=== PATIENT | female | born 1945 | race Caucasian/White ===

== ENCOUNTER 2016-09-02 12:07 | Emergency (ER) | payer MEDICARE ==
[2014-09-10 16:43] VITALS: BMI 34.0
[~2016-09-02 12:07] MED LIST: BAYER CHEWABLE81 MG PO; COUMADIN7.5 MG PO; JANUMET 50-1,001 TAB PO; MAVIK4 MG PO; VITAMIN B-1000 MCG/M IM; VITAMIN B-121000 MCG PO; ZOLOFT50 MG PO
[2016-09-02 14:00] LABS: BASOPHILS 0.2 % (0.0-2.0); EOSINOPHILS 0.3 % (0-7); HEMOGLOBIN 12.3 g/dL (12-16); IMMATURE GRANULOCYTES 0.3 % (0-5); LYMPHOCYTES 15.1 % (15-50); MCH 27.9 pg (26.0-34.0); MCHC 32.4 g/dL (31.0-37.0); MCV 86.2 fL (80.0-100.0); MONOCYTES 6.7 % (2-11); NEUTROPHILS 77.4 % (40-80); PLATELET COUNT 101 10x3/uL (130-400); RBC 4.41 10x6/uL (4.00-5.40); RDW 15.1 % (11.5-14.5); WBC 8.9 10x3/uL (4.8-10.8)
[2016-09-02 14:11] LABS: ALBUMIN 3.5 g/dL (3.4-5.0); ANION GAP 13.4 mmol/L (8-16); APTT 21.4 SECONDS (22.8-39.4); BILIRUBIN - TOTAL 0.38 mg/dL (0.2-1.3); CARBON DIOXIDE 27.4 mmol/L (21.0-32.0); INR 2.48 (0.85-1.17); POTASSIUM - SERUM 4.8 mmol/L (3.5-5.1); PROTEIN - SERUM 7.3 g/dL (6.4-8.2)
== END 2016-09-02 16:47 | disposition home or self-care (01) ==
LOC: D.ER 12:07
PROVIDERS: Physician Assistant
DX: S09.90XA Unspecified injury of head, initial encounter (principal); W10.9XXA Fall (on) (from) unspecified stairs and steps, initial encounter; Y93.89 Activity, other specified; Y92.019 Unspecified place in single-family (private) house as the place of occurrence of the external cause; M25.512 Pain in left shoulder; M25.552 Pain in left hip; Z79.01 Long term (current) use of anticoagulants; E11.9 Type 2 diabetes mellitus without complications; I10 Essential (primary) hypertension; Z86.73 Personal history of transient ischemic attack (TIA), and cerebral infarction without residual deficits; F32.9 Major depressive disorder, single episode, unspecified; F17.200 Nicotine dependence, unspecified, uncomplicated

== ENCOUNTER 2016-11-14 05:14 | Day surgery (SDC) | payer MEDICARE ==
[2016-11-13 11:15] LABS: HEMATOCRIT 40.9 % (36.0-48.0); HEMOGLOBIN 12.8 g/dL (12-16); MCH 27.9 pg (26.0-34.0); MCHC 31.3 g/dL (31.0-37.0); MCV 89.1 fL (80.0-100.0); MEAN PLATELET VOLUME 9.2 fL (7.4-10.4); RBC 4.59 10x6/uL (4.00-5.40); RDW 15.3 % (11.5-14.5); WBC 6.9 10x3/uL (4.8-10.8)
[2016-11-13 11:24] LABS: APTT 28.3 SECONDS (22.8-39.4); INR 0.99 (0.85-1.17); PROTIME 12.9 SECONDS (11.6-15.0)
[2016-11-13 11:39] LABS: ANION GAP 15.1 mmol/L (8-16); CREATININE - SERUM 1.1 mg/dL (0.6-1.3); POTASSIUM - SERUM 4.1 mmol/L (3.5-5.1)
[~2016-11-14] VITALS: Ht 154.9 cm; Wt 81.6 kg
--- NOTE | ~2016-11-14 | OP ---
PATIENT NAME: JENNIFER LEUNG MEDICAL RECORD: [id number] :41 LOCATION:[facility] ADMISSION DATE: SURGEON: KING COOK DPM DATE OF OPERATION: 11/14/2016 PREOPERATIVE DIAGNOSES: Enlarged bone right fifth toe, right fourth toe and right fourth metatarsal. POSTOPERATIVE DIAGNOSES: Enlarged bone right fifth toe, right fourth toe and right fourth metatarsal. PROCEDURES: 1. Right fifth arthroplasty. 2. Partial resection base of the right fourth proximal phalanx. 3. Partial met head resection of right fourth metatarsal. ANESTHESIA: Local with IV sedation utilizing lidocaine and Marcaine plain, approximately 10 cc around the fourth and fifth ray of the right foot. HEMOSTASIS: Right ankle tourniquet at 250 mmHg. PREOPERATIVE DETAILS: The patient was taken to the OR, placed on the operating table in a supine position. This was followed by induction of general anesthesia and infiltration of local anesthetic. The right extremity was then prepped and draped in usual aseptic technique followed by exsanguination and inflation of tourniquet. PROCEDURE NUMBER #1: Arthroplasty, right fifth digit. A 15-blade was used to create a 1.5 cm linear incision over the dorsal aspect of the right fifth digit. Incision was deepened down to the extensor longus tendon, which was transected. The head of the proximal phalanx was then delivered and resected with a sagittal saw. All rough areas were smoothed with a rongeur. The wound was flushed. The extensor tendon was repaired with 4-0 Rapide. The subcutaneous tissue was repaired with 4-0 Rapide and the skin was closed with 4-0 Rapide in a subcuticular technique. PROCEDURE NUMBER #2: Partial resection of the base of the fourth proximal phalanx of the right foot. The incision was made just proximal to the PIPJ of the right fourth digit proximal, past the fourth MPJ. The incision deepened down through subcutaneous tissue to the extensor apparatus. A linear capsulotomy was made just lateral to the extensor longus tendon longitudinally, freeing the head of the fourth metatarsal and the base of the proximal phalanx of the fourth digit. Freeing the base of the proximal phalanx of the fourth digit, a sagittal saw was used to resect the lateral aspect. It was removed. Excellent reduction of the enlargement was noted. PROCEDURE NUMBER #3: Partial met head resection, right fourth digit. A sagittal saw was then used to resect the lateral aspect of the right fourth metatarsal head approximately 3 mm. Excellent reduction of the enlargement was noted. Wound was flushed. The capsule was then closed with 2-0 Vicryl in a horizontal mattress technique. The subcutaneous tissue was repaired with 4-0 Rapide and the skin was closed with 4-0 Rapide in a subcuticular technique followed by Dermabond, Adaptic, 4 x 4 and Conform were used to dress the wounds followed by Coban. Tourniquet was deflated. OPERATIVE REPORT [id number] JENNIFER LEUNG POSTOPERATIVE DETAILS: The patient tolerated the procedure well and left the OR with vital signs stable and vascular status at preoperative levels. The patient was transferred to recovery per anesthesia in stable condition. TRANSINT:[id number] Voice Confirmation ID: [id number] DOCUMENT ID: [id number] KING COOK DPM CC: [id number] DICTATION DATE: 11/14/16 1232 HIM MANAGER: 11/14/16 8723 [facility] 11/14/16 [id number] [place] [address]
[2016-11-14 10:47] VITALS: BP 108/62; BMI 34.0
[2016-11-14 10:49] VITALS: BP 108/68; Ht 154.9 cm; Wt 81.6 kg
== END 2016-11-14 14:25 | disposition home or self-care (01) ==
LOC: D.OPS 05:14 → D.PAN 12:30 → D.OPS 12:30
PROVIDERS: Anesthesiology
DX: M89.371 Hypertrophy of bone, right ankle and foot (principal)

== ENCOUNTER → 2018-03-05 18:09 | Outpatient (CLI) | payer MEDICARE ==
[2016-11-14 10:49] VITALS: BMI 34.0
== END | disposition home or self-care (01) ==
LOC: D.MAMMO 02-18 14:00
DX: Z12.31 Encounter for screening mammogram for malignant neoplasm of breast (principal)

== ENCOUNTER 2019-04-27 07:12 | Outpatient (CLI) | payer MEDICARE ==
[~2019-04-27] VITALS: Ht 154.9 cm; Wt 80.9 kg
--- NOTE | ~2019-04-27 | HEMODYNAMI ---
PATIENT:JENNIFER LEUNG MEDICAL RECORD: [id number] : 41 [id number] ADMISSION DATE: 04/27/19 Generatedon:04/28/201910:20 Patient name: JENNIFER LEUNG Patient #: [id number] : 1945 Date of study: 04/28/2019 Page: Of Hemodynamic Procedure Report Patient Data Patient Demographics Procedure consent was obtained First Name: JENNIFER Gender: Female Last Name: MADHU : 1945 Middle Initial: MARIZOL Age: 73 year(s) Patient #: [id number] Race: SSN: [id number] Additional ID: [id number] Contact details Address: [address] [place] [address] State: [place] City: [place] Zip code: [address] Past Medical History Allergies Allergen Reaction Date Comments Reported Other allergy 04/27/2019 Sulfa Admission Admission Data Admission Date: 04/27/2019 Admission Time: 7:12 Arrival Date: 04/27/2019 Arrival Time: 0:00 Admit Source: Other Insurance Payor: Private Room #: [id number] health insurance [facility] #: [id number] Height (in.): 154 BSA: 3.5 (m2) Height (cm.): 391.16 BMI: 5.23 (kg/m2) Weight (lbs.): 176.37 Weight (kg.): 80 Lab Results Lab Result Date: 04/28/2019 Lab Result Time: 0:00 Biochemistry Name Units Result Min Max BUN mg/dl 19 --(----)*- 7 18 Creatinine mg/dl 1 --(--*-)-- 0.6 1.3 eGFR ml/min 58 *-(----)-- 90 120 NONAFRICAN CBC Name Units Result Min Max Hemoglobin g/dl 11.8 *-(----)-- 13.5 17.5 Procedure Procedure Types Cath Procedure Diagnostic Procedure FFR/IVUS FFR Initial FFR Additional Sedation Charges Moderate Sedation up to 15 minutes PCI Procedure Coronary Stent Coronary Stent Initial Procedure Description Procedure Date Procedure Date: 04/28/2019 Procedure Start Time: 9:59 Procedure End Time: 10:17 Procedure Staff Name Function Js Diaz MD Performing Physician Ashley Zuniga RT Monitor Maureen Lopez RT Scrub Shraddha Key RN Nurse Procedure Data Cath Procedure Fluoroscopy Diagnostic fluoroscopy Total fluoroscopy Time: 4.4 time: 4.4 min min Diagnostic fluoroscopy Total fluoroscopy dose: 521 dose: 521 mGy mGy Contrast Material Contrast Material Type Amount (ml) Isovue 300 58 Entry Location Entry Primary Successful Side Size Upsize Upsize Entry Closure Succes sful Closure Location (Fr) 1 (Fr) 2 (Fr) Remarks Device Remarks Femoral Left 6 Fr Exoseal artery Short Estimated blood loss: 5 ml Procedure Complications No complications Procedure Medications Medication Administration Route Dosage 0.9% NaCl I.V. 100 ml/hr Oxygen etCO2 Nasal cannula 2 l/min Lidocaine 2% added to field 20 Heparin Flush Bag added to field 2 bags (1000units/500ml NS) Versed I.V. 2 mg Fentanyl I.V. 50 mcg Heparin Bolus I.V. 4000 units Hemodynamics Rest BSA: 3.5 (m2) HGB: 11.8 (g/dl) O2 Consumption: Estimated: 319.46 (ml/min) O2 Con sumption indexed: Estimated:91.27 (ml/min/m) Heart Rate: 71 (bpm) Snapshots Pre Cath Intra NCS Post Cath Vital Signs Time Heart Resp SPO2 etCO2 NIBP (mmHg) Rhythm Pain Sedation Rate (ipm) (%) (mmHg) Status Level (bpm) 9:24:42 74 23 100 31 135/59(96) NSR 0 (11) 10(A) , No pain 9:29:02 72 18 100 35.5 128/56(104) NSR 0 (11) 10(A) , No pain 9:33:16 93 26 100 34.7 117/67(90) NSR 0 (11) 10(A) , No pain 9:37:26 112 15 97 24.2 115/64(103) ST 0 (11) 10(A) , No pain 9:41:32 107 29 97 22.7 116/66(89) ST 0 (11) 10(A) , No pain 9:45:42 97 15 95 22.6 112/64(83) NSR 0 (11) 10(A) , No pain 9:49:52 99 28 96 31.8 118/62(92) NSR 0 (11) 10(A) , No pain 9:54:04 93 30 99 27.9 115/61(89) NSR 0 (11) 9(A) , No pain 9:58:13 85 17 100 31.7 119/62(83) NSR 0 (11) 9(A) , No pain 10:02:25 77 24 100 28.7 120/61(102) NSR 0 (11) 9(A) , No pain 10:06:41 83 18 100 34 107/51(85) NSR 0 (11) 9(A) , No pain 10:10:51 91 12 100 34 100/55(82) NSR 0 (11) 9(A) , No pain 10:14:55 89 23 100 32.5 119/62(94) NSR 0 (11) 10(A) , No pain Medications Time Medication Route Dose Verified Delivered Reason Notes Effectiveness by by 9:23:38 0.9% NaCl I.V. 100 Js Shraddha used for ml/hr Emily Key hybrid tester 9:23:45 Oxygen etCO2 2 Js Shraddha used for Nasal l/min Emily eKy procedure cannula RN 9:23:49 Lidocaine 2% added 20ml Js Js for local to vial Emily Diaz MD anesthetic field 9:23:55 Heparin Flush added 2 Js Js used for Bag to bags Emily Diaz MD procedure (1000units/500ml field NS) 9:49:39 Versed I.V. 2 mg Js Shraddha for sedation Emily Key RN 9:49:44 Fentanyl I.V. 50 Js Shraddha for sedation mcg Emily Key RN 10:05:54 Heparin Bolus I.V. 4000 Js Shraddha for verif ied units Emily Key anticoagulation with Dr. JAIRON Diaz Procedure Log Time Note 8:40:46 Patient Height : 154 inches 8:40:46 Patient Weight : 176.37 lbs 8:42:29 Informed consent obtained and on chart 8:42:38 Diagnostic Cath Status : Urgent 8:44:39 Procedure Status Urgent Heart Cath (IP). 8:44:42 Shraddha Key RN sent for patient. Start room use. 8:44:43 Time tracking: Regular hours (M-F 7:00 - 5:00) 8:44:48 Plan of Care:Hemodynamics will remain stable., Cardiac rhythm will remain stable., Comfort level will be maintained., Respiratory function will remain adequate., Patient/ family verbilizes understanding of procedure., Procedure tolerated without complication., Recovers from procedure without complications.. 8:59:29 Lab Result : BUN 19 mg/dl 8:59:29 Lab Result : Creatinine 1 mg/dl 8:59:29 Lab Result : eGFR NONAFRICAN 58 ml/min 8:59:29 Lab Result : Hemoglobin 11.8 g/dl 9:03:48 Risk of Mortality: 0.4 9:03:53 Risk of blood transfusion: 0.7\ 9:03:59 Risk of ROYAL: 1.5 9:04:09 3a) 45-59 Moderately reduced kidney function. 9:05:50 Maximum allowable contrast dose (3.7 X eGFR X 0.75)160 ml. 9:17:05 Patient received from Med II to CCL 2 Alert and oriented. Tansferred to table in Supine position. 9:17:07 Warm blankets applied, and vel hugger turned on for patient comfort. 9:17:07 Correct patient and procedure confirmed by team. 9:17:07 ECG and BP/O2 sat monitors applied to patient. 9:23:28 Vital chart was started 9:23:38 0.9% NaCl 100 ml/hr I.V. was administered by Shraddha Key RN; used for procedure; Verbal order read back and verified. 9:23:45 Oxygen 2 l/min etCO2 Nasal cannula was administered by Shraddha Key RN; used for procedure; Verbal order read back and verified. 9:23:49 Lidocaine 2% 20ml vial added to field was administered by Js Diaz MD; for local anesthetic; Verbal order read back and verified. 9:23:55 Heparin Flush Bag (1000units/500ml NS) 2 bags added to field was administered by Js Diaz MD; used for procedure; Verbal order read back and verified. 9:25:53 Baseline sample Acquired. 9:25:57 Rhythm: sinus rhythm 9:25:59 Full Disclosure recording started 9:26:04 H&P Date Dictated: 04/28/2019 Within 30 days and on chart.. 9:26:05 Pre-procedure instructions explained to patient. 9:26:06 Pre-op teaching completed and patient verbalized understanding. 9:26:07 Family in waiting room. 9:26:13 Patient NPO since Midnight. 9:26:14 Is the patient allergic to Iodine/contrast media? No. 9:26:15 Was the patient premedicated? No 9:26:26 Is patient on blood thinner?Yes 9:26:29 ACC The patient was administered the following blood thiners within the last 24 hours: ACCPlavix 9:26:32 Patient diabetic? Yes. 9:26:34 Previous problem with sedation/anesthesia? No ? 9:26:36 Snore? No 9:26:37 Sleep apnea? No 9:26:37 Deviated septum? No 9:26:38 Opens mouth fully? Yes 9:26:39 Sticks out tongue? Yes 9:26:42 Airway obstruction? No ? 9:26:50 Dentures? Yes in tight 9:28:35 If diabetic: On Metformin? Yes 9:28:39 If on Metformin: Last Dose? 04/26/2019 9:28:54 Pre procedure: right dorsailis pedis pulse 1+ Palpable, but thready & weak; easily obliterated 9:28:56 Pre procedure: left dorsailis pedis pulse 1+ Palpable, but thready & weak; easily obliterated 9:28:59 Patient pain scale 0/10 ?. 9:29:07 IV patent on arrival in left forearm with 0.9% NaCl at [facility]. 9:29:09 Lab results completed and on chart. 9:29:14 Stress Test: no; N/A ? 9:29:20 Left groin area was prepped with chlora-prep and draped in sterile fashion 9:29:21 Alarms reviewed by R. N. 9:29:21 Sharps counted by scrub and verified by R.N. 9:49:10 Physician arrived 9:49:10 --------ALL STOP TIME OUT------ 9:49:11 Final Timeout: patient, procedure, and site verified with staff and physician. All members of the team are in agreement. 9:49:13 Left groin site verified by team. 9:49:17 Fire Safety Assessment: A--An alcohol-based skin anteseptic being used preoperatively., C--Open oxygen or nitrous oxide is being used., D--An ESU, laser, or fiber-optic light is being used. 9:49:21 Physical assessment completed. ASA score P 2 - A patient with mild systemic disease as per Js Diaz MD. 9:49:25 Sedation plan: IV Moderate Sedation Medication:Versed, Fentanyl 9:49:31 Use device set CATH PACK 9:49:32 ACIST Syringe (86219) opened to sterile field. 9:49:33 ACIST Hand Control (91422) opened to sterile field. 9:49:33 ACIST Manifold (91360) opened to sterile field. 9:49:33 Medline Cath Pack ([id number]) opened to sterile field. 9:49:34 Bag Decanter (2002S) opened to sterile field. 9:49:34 EMERALD Guide Wire (814-587) opened to sterile field. 9:49:39 Versed 2 mg I.V. was administered by Shraddha Key RN; for sedation; Verbal order read back and verified. 9:49:41 SHEATH 6FR [place] (LAW888) opened to sterile field. 9:49:44 Fentanyl 50 mcg I.V. was administered by Shraddha Key RN; for sedation; Verbal order read back and verified. 9:49:54 CHOICE PT Extra Support 182cm wire ([id number]) opened to sterile field. 9:49:55 INFLATOR Merit BasixCompak (DR3771) opened to sterile field. 9:57:34 Zero performed for pressure channel P1 9:57:48 Procedure started. 9:59:36 Local anesthetic to left femerol artery with Lidocaine 2% by Js Diaz MD.INITIAL ACCESS ONLY 9:59:48 A 6 Fr Short sheath was inserted into the Left Femoral artery 10:01:05 [place] Verrata Plus pressure wire (56126K) opened to sterile field. 10:01:06 GUIDE 6FR AR 1.0 catheter ([id number]) opened to sterile field. 10:01:16 6 Fr ar 1 guide catheter was inserted over the wire 10:01:25 FFR/IFR wire advanced. 10:01:27 Baseline FFR 1. 10:02:03 RCA angiography performed. 10:02:06 Injector settings: Ml/sec: 3, Volume: 6, 10:03:16 Wire advanced across lesion. 10:04:10 mRCA lesion measured at 0.88 with IFR 10:05:01 ACC Pre-intervention MARY Flow is 3. 10:05:13 Pre PCI Site: [place] pRCA has 80% stenosis. 10:05:54 Heparin Bolus 4000 units I.V. was administered by Shraddha Key RN; for anticoagulation; verified with Dr. Diaz Verbal order read back and verified. 10:06:14 Place stent Inflation Number: 1 A JEFFREY RX 3.5 x 22 stent ([id number]) was prepped and advanced across the Prox RCA 80. The stent was deployed at 15 MATEUS for 0:10 (min:sec) 0. 10:06:18 Stent catheter was removed intact over wire. 10:06:20 Wire removed. 10:06:21 Guide catheter removed. 10:06:33 GUIDE 6FR EBU 3.5 catheter ([id number]) opened to sterile field. 10:06:49 ACC Post-intervention MARY Flow is 3. 10:06:58 Post PCI Site: [place] pRCA has 0% stenosis. 10:07:17 6 Fr ebu 3.5 guide catheter was inserted over the wire 10:07:55 LCA angiography performed. 10:07:57 Injector settings: Ml/sec: 3, Volume: 6, 10:08:22 [place] Verrata Plus pressure wire (55790A) opened to sterile field. 10:08:55 FFR/IFR wire advanced. 10:09:00 Baseline FFR 1. 10:11:33 ACT drawn and resulted at 270 seconds. (normal therapeutic range 180-240 seconds). 10:14:53 mCirc lesion measured at 0.93 with IFR 10:15:05 Wire removed. 10:15:06 Guide catheter removed. 10:15:19 EXOSEAL 6Fr (EX600) opened to sterile field. 10:15:47 Sheath removed intact; hemostasis achieved with Exoseal to the Left Femoral artery. 10:15:49 Procedure ended.(Physican Out) 10:16:02 Fluoroscopy time 04.40 minutes. 10:16:07 Flurop Dose total: 521 10:16:07 Fluoroscopy dose: 521 mGy 10:16:12 Dose Area Product 70904 mGy/cm. 10:16:17 Contrast amount:Isovue 300 58ml. 10:16:19 Maximum allowable dose exceeded? No. 10:16:20 Sharps counted by scrub and verified by R.N. 10:16:24 Insertion/operative site no bleeding no hematoma. 10:16:27 Post-op/insertion site Right Femoral artery dressed using a 4 x 4 and Tegaderm. 10:16:29 Post Procedure Pulses reassessed and unchanged 10:16:33 Post procedure rhythm: unchanged. 10:16:35 Estimated blood loss: 5 ml 10:16:37 Post procedure instruction explained to patient.Patient verbalizes understanding. 10:16:37 Patient needs reinforcement of post procedure teaching. 10:17:04 Procedure type changed to Cath procedure, Diagnostic procedure, FFR/IVUS, FFR Initial, FFR Additional, Sedation Charges, Moderate Sedation up to 15 minutes, PCI procedure, Coronary Stent, Coronary Stent Initial 10:17:08 Procedure and supply charges have been captured, reviewed, submitted and are correct. 10:17:13 Procedure Complication : No complications 10:17:16 Vital chart was stopped 10:17:20 [facility] Findings: MVD- PCI performed (see procedure note) 10:17:41 Operative report dictated upon procedure completion. 10:17:42 See physician's report for complete and final results. 10:17:45 Report given to Pre/Post Procedure Room. 10:17:48 Patient transfered to Pre/Post Procedure Room with Stretcher. 10:17:49 Procedure ended. 10:17:49 Full Disclosure recording stopped 10:18:06 ACC-PCI Only Patient was given prescriptions, or instructed by Js Diaz MD to start/continue the following medications upon discharge: Plavix 10:18:07 End room use (Document Last) Intervention Summary Intervention Notes Time ActionType Lesion and Equipment Used Action# Pressure Duration Attributes 10:06:[address] Place stent Prox RCA JEFFREY RX 3.5 x 1 15 00:10 22 stent ([id number]) Device Usage Item Name Manufacture Quantity Catalog Number Hospital Part Current Minimal Lot# / Charge Number Stock Stock Serial# Code ACIST Syringe Acist 1 69306 936369 858966 709882 20 (53142) Medical Systems Inc ACIST Hand Acist 1 43020 797029 418425 633318 5 Control Medical (72814) Systems Inc ACIST Manifold Acist 1 55763 869812 492048 666383 5 (24187) Medical Systems Inc Medline Cath Medline 1 [id number] 107014 59657 168550 5 Pack ([id number]) Bag Decanter Microtek 1 2001S 791654 93893 863983 5 (2001S) Medical Inc. EMERALD Guide Cardinal 1 502-455 298434 834240 899710 5 Wire (502-455) Health SHEATH 6FR Terumo 1 DEV560 645274 655674 749930 40 [place] (STK518) CHOICE PT [place] 1 [id number] 038479 527908 086320 5 Extra Support Scientific 182cm wire ([id number]) INFLATOR Merit Merit 1 LA4717 010806 466975 710906 15 [facility] (UP8675) [place] 2 15056Z 206993 [id number] 247068 5 Verrata Plus pressure wire (78485K) GUIDE 6FR AR Medtronic 1 [id number] 406985 40637 919295 1 1.0 catheter ([id number]) JEFFREY RX 3.5 x Medtronic 1 [id number] 417392 3562334 802143 5 [id number] 22 stent ([id number]) GUIDE 6FR EBU Medtronic 1 [id number] 915995 54400 332855 3 3.5 catheter ([id number]) EXOSEAL 6Fr Cardinal 1 EX600 373792 157651 102998 10 (EX600) Health Signature Audit [place] Stage Time Signature Unsigned Intra-Procedure 04/28/2019 Ashley Zuniga 10:19:23 AM RT(R) Intra-Procedure 04/28/2019 Shraddha Key 10:20:28 AM RN Intra-Procedure 04/28/2019 Js Diaz 10:20:55 AM Signatures Performing Physician : Signature : Js Diaz MD Date : Time : Monitor : Ashley Efrain RT Signature : Date : Time : Nurse : Shraddha Shahid RN Signature : Date : Time : [address] [place] [address]
--- NOTE | ~2019-04-27 | HEMODYNAMI ---
PATIENT:JENNIFER LEUNG MEDICAL RECORD: [id number] : 41 LOCATION:[facility] ADMISSION DATE: 04/27/19 Generatedon:04/27/20199:56 Patient name: JENNIFER LEUNG Patient #: [id number] : 1945 Date of study: 04/27/2019 Page: Of Hemodynamic Procedure Report Patient Data Patient Demographics Procedure consent was obtained First Name: JENNIFER Gender: Female Last Name: MADHU : 1945 Middle Initial: MARIZOL Age: 73 year(s) Patient #: [id number] Race: Unknown SSN: [id number] Additional ID: [id number] Contact details [address]: [address] [place] [address] State: [place] City: [place] Zip code: [address] Past Medical History Allergies Allergen Reaction Date Comments Reported Other allergy 04/27/2019 Sulfa Admission Admission Data Admission Date: 04/27/2019 Admission Time: 7:12 Arrival Date: 04/27/2019 Arrival Time: 0:00 Admit Source: Other Insurance Payor: Private health insurance [facility] #: [id number] Height (in.): 154 BSA: 3.5 (m2) Height (cm.): 391.16 BMI: 5.23 (kg/m2) Weight (lbs.): 176.37 Weight (kg.): 80 Lab Results Lab Result Date: 04/27/2019 Lab Result Time: 0:00 Biochemistry Name Units Result Min Max BUN mg/dl 20 --(----)*- 7 18 Creatinine mg/dl 1 --(--*-)-- 0.6 1.3 Procedure Procedure Types Cath Procedure Diagnostic Procedure [facility] w/Coronaries PCI Procedure Coronary Stent Coronary Stent Initial Procedure Description Procedure Date Procedure Date: 04/27/2019 Procedure Start Time: 9:17 Procedure End Time: 9:37 Procedure Staff Name Function Ashley Zuniga RT Scrub Js Diaz MD Performing Physician Maureen Lopez RT Monitor Shraddha Key RN Nurse Indication Dyspnea Chest heaviness and pressure Procedure Data Cath Procedure Fluoroscopy Diagnostic fluoroscopy Total fluoroscopy Time: 4.8 time: 4.8 min min Diagnostic fluoroscopy Total fluoroscopy dose: dose: 1041 mGy 1041 mGy Contrast Material Contrast Material Type Amount (ml) Isovue 300 110 Entry Location Entry Primary Successful Side Size Upsize Upsize Entry Closure Succes sful Closure Location (Fr) 1 (Fr) 2 (Fr) Remarks Device Remarks Femoral Right 6 Fr Exoseal artery Short Estimated blood loss: 10 ml Diagnostic catheters Device Type Used For End Catheter Placement MULTIPACK Pigtail 5 Fr Ventriculography catheter MULTIPACK JL 4.0 5Fr Procedure catheter MULTIPACK 3DRC 5Fr Procedure catheter Procedure Complications No complications Procedure Medications Medication Administration Route Dosage 0.9% NaCl I.V. 100 ml/hr Oxygen etCO2 Nasal cannula 2 l/min Lidocaine 2% added to field 20 Heparin Flush Bag added to field 2 bags (1000units/500ml NS) Versed I.V. 2 mg Fentanyl I.V. 50 mcg Heparin Bolus I.V. 4000 units Plavix P.O. 75 mg Phenergan I.M. 25 mg Hemodynamics Rest BSA: 3.5 (m2) O2 Consumption: Estimated: 307.8 (ml/min) O2 Consumption indexed: Estimated:87.94 (ml/min/m) Heart Rate: 62 (bpm) Snapshots Pre Cath Intra NCS Post Cath Vital Signs Time Heart Resp SPO2 etCO2 NIBP (mmHg) Rhythm Pain Sedation Rate (ipm) (%) (mmHg) Status Level (bpm) 8:48:33 83 16 98 30.1 135/74(120) NSR 0 (11) 10(A) , No pain 8:52:45 85 11 96 8.2 119/69(104) NSR 0 (11) 10(A) , No pain 8:56:51 83 12 96 12.8 135/72(126) NSR 0 (11) 10(A) , No pain 9:01:05 80 13 96 20 120/64(103) NSR 0 (11) 10(A) , No pain 9:05:13 76 15 97 18.8 124/64(100) NSR 0 (11) 10(A) , No pain 9:09:23 76 18 96 16.5 127/66(87) NSR 0 (11) 10(A) , No pain 9:13:37 69 14 96 35 118/60(82) NSR 0 (11) 10(A) , No pain 9:18:36 59 10 98 31.6 Measuring NSR 0 (11) 9(A) , No pain 9:18:48 65 16 98 31.6 132/57(81) NSR 0 (11) 9(A) , No pain 9:23:00 67 15 100 35.3 134/67(114) NSR 0 (11) 9(A) , No pain 9:27:20 64 14 100 36.1 134/67(109) NSR 0 (11) 9(A) , No pain 9:31:32 68 15 100 37.6 129/69(94) NSR 0 (11) 9(A) , No pain 9:36:31 66 14 100 42.9 Measuring NSR 0 (11) 10(A) , No pain 9:36:54 67 13 100 37.6 135/57(90) NSR 0 (11) 10(A) , No pain Medications Time Medication Route Dose Verified Delivered Reason Notes Effectiveness by by 8:47:44 0.9% NaCl I.V. 100 Js Shraddha used for ml/hr Emily Key price clerk 8:47:50 Oxygen etCO2 2 Js Shraddha used for Nasal l/min Emily Key procedure cannula RN 8:47:55 Lidocaine 2% added 20ml Js Js for local to vial Emily Diaz MD anesthetic field 8:48:09 Heparin Flush added 2 Js Js used for Bag to bags Emily Diaz MD procedure (1000units/500ml field NS) 9:17:05 Versed I.V. 2 mg Js Shraddha for sedation Emily Key RN 9:17:13 Fentanyl I.V. 50 Js Shraddha for sedation mcg Emily Key RN 9:24:20 Heparin Bolus I.V. 4000 Js Shraddha for verifi ed units Emily Key anticoagulation with Dr. JAIRON Diaz 9:33:24 Plavix P.O. 75 mg Js Shraddha for Emily Key antiplatelet RN therapy 9:56:14 Phenergan I.M. 25 mg Js Shraddha for nausea Emily Key ms sql server developer Log Time Note 8:34:15 Arrival Date: 04/27/2019 12:00:00 AM 8:34:25 Admit Source: Other 8:34:31 Insurance Payor : Private health insurance 8:35:21 Procedure Status Elective Heart Cath (OP). 8:35:23 Ashley Zuniga RT(R) sent for patient. Start room use. 8:35:25 Time tracking: Regular hours (M-F 7:00 - 5:00) 8:35:29 Plan of Care:Hemodynamics will remain stable., Cardiac rhythm will remain stable., Comfort level will be maintained., Respiratory function will remain adequate., Patient/ family verbilizes understanding of procedure., Procedure tolerated without complication., Recovers from procedure without complications.. 8:35:37 Patient received from Pre/Post Procedure Room to CCL 2 Alert and oriented. Tansferred to table in Supine position. 8:38:01 3a) 45-59 Moderately reduced kidney function. 8:38:25 Maximum allowable contrast dose (3.7 X eGFR X 0.75)163 ml. 8:47:23 Signed procedure consent form obtained from patient. 8:47:25 Warm blankets applied, and vel hugger turned on for patient comfort. 8:47:26 ECG and BP/O2 sat monitors applied to patient. 8:47:26 Correct patient and procedure confirmed by team. 8:47:27 Vital chart was started 8:47:31 Baseline sample Acquired. 8:47:35 Rhythm: sinus rhythm 8:47:37 Full Disclosure recording started 8:47:44 0.9% NaCl 100 ml/hr I.V. was administered by Shraddha Key RN; used for procedure; Verbal order read back and verified. 8:47:45 H&P Date Dictated: 04/27/2019 Within 30 days and on chart., H&P Addendum completed by physician on day of procedure. (MUST COMPLETE FOR ALL OUTPATIENTS). 8:47:47 Pre-procedure instructions explained to patient. 8:47:49 Family in waiting room. 8:47:50 Oxygen 2 l/min etCO2 Nasal cannula was administered by Shraddha Key RN; used for procedure; Verbal order read back and verified. 8:47:51 Patient NPO since Midnight. 8:47:55 Lidocaine 2% 20ml vial added to field was administered by Js Diaz MD; for local anesthetic; Verbal order read back and verified. 8:48:09 Heparin Flush Bag (1000units/500ml NS) 2 bags added to field was administered by Js Diaz MD; used for procedure; Verbal order read back and verified. 8:48:12 Patient allergic to Other allergySulfa 8:48:19 Is the patient allergic to Iodine/contrast media? No. 8:48:20 Was the patient premedicated? Yes 8:48:21 Is patient on blood thinner?Yes 8:48:24 ACC The patient was administered the following blood thiners within the last 24 hours: ACCPlavix 8:48:26 Patient diabetic? Yes. 8:48:30 If diabetic: On Metformin? Yes 8:48:34 If on Metformin: Last Dose? 04/26/2019 8:48:43 Snore? No 8:48:44 Sleep apnea? No 8:48:55 Dentures? Yes in tight 8:49:00 Patient pain scale 0/10 ?. 8:49:11 IV patent on arrival in left forearm with 0.9% NaCl at [facility]. 8:50:07 Lab Result : Creatinine 1 mg/dl 8:50:07 Lab Result : BUN 20 mg/dl 8:50:13 Lab results completed and on chart. 8:50:30 Right groin area was prepped with chlora-prep and draped in sterile fashion 8:50:31 Alarms reviewed by R. N. 8:50:32 Sharps counted by scrub and verified by R.N. 9:00:04 Patient Height : 154 inches 9:00:11 Patient Weight : 176.37 lbs 9:01:07 Indication : Dyspnea 9:01:19 Indication : Chest heaviness and pressure 9:02:48 Use device set Femoral Dx 9:02:59 ACIST Syringe (82672) opened to sterile field. 9:03:00 Bag Decanter (2002) opened to sterile field. 9:03:01 Medline Cath Pack ([id number]) opened to sterile field. 9:03:03 ACIST Manifold (84058) opened to sterile field. 9:03:03 ACIST Hand Control (17451) opened to sterile field. 9:03:04 DIAGNOSTIC Multipack 5Fr catheter set (JL2017) opened to sterile field. 9:03:06 EMERALD Guide Wire (826-752) opened to sterile field. 9:03:12 SHEATH 6FR [place] (VOO568) opened to sterile field. 9:03:14 Tegaderm 4 x 4 (1626W) opened to sterile field. 9:03:26 Baseline sample Acquired. 9:09:05 Physician paged 9:15:33 Physician arrived 9:15:34 --------ALL STOP TIME OUT------ 9:15:35 Final Timeout: patient, procedure, and site verified with staff and physician. All members of the team are in agreement. 9:15:41 Right groin site verified by team. 9:15:45 Fire Safety Assessment: A--An alcohol-based skin anteseptic being used preoperatively., C--Open oxygen or nitrous oxide is being used., D--An ESU, laser, or fiber-optic light is being used. 9:15:50 Physical assessment completed. ASA score P 3 - A patient with severe systemic disease as per Js Diaz MD. 9:15:54 Sedation plan: IV Moderate Sedation Medication:Versed, Fentanyl 9:17:05 Versed 2 mg I.V. was administered by Shraddha Key RN; for sedation; Verbal order read back and verified. 9:17:13 Fentanyl 50 mcg I.V. was administered by Shraddha Key RN; for sedation; Verbal order read back and verified. 9:17:30 Procedure started. 9:17:37 Local anesthetic to right femoral artery with Lidocaine 2% by Js Diaz MD.INITIAL ACCESS ONLY 9:17:48 A 6 Fr Short sheath was inserted into the Right Femoral artery 9:18:29 A MULTIPACK Pigtail 5 Fr catheter was advanced over the wire and used for Ventriculography. 9:18:34 LV angiography performed. 9:18:51 Zero performed for pressure channel P1 9:20:00 LV gram done using MARTIN 9:20:06 EF : 65 % 9:20:08 Catheter removed. 9:20:18 A MULTIPACK JL 4.0 5Fr catheter was advanced over the wire and used for Procedure. 9:20:21 LCA angiography performed. 9:21:53 Catheter removed. 9:22:04 A MULTIPACK 3DRC 5Fr catheter was advanced over the wire and used for Procedure. 9:22:11 RCA angiography performed. 9:22:18 Catheter removed. 9:23:03 INFLATOR Merit BasixCompak (OC8701) opened to sterile field. 9:23:04 [place] Verrata Plus pressure wire (70011J) opened to sterile field. 9:23:07 Proceeding to intervention. 9:23:35 GUIDE 6FR 3DRC catheter (NM27YVQ) opened to sterile field. 9:23:46 ACC Pre-intervention MARY Flow is 3. 9:23:55 6 Fr 3DRC guide catheter was inserted over the wire 9:24:20 Heparin Bolus 4000 units I.V. was administered by Shraddha Key RN; for anticoagulation; verified with Dr. Diaz Verbal order read back and verified. 9:26:41 unable to get pressures for IFR. Catheter removed 9:27:10 GUIDE 6FR XBLAD 3.5 SH catheter ([id number]) opened to sterile field. 9:27:22 6 Fr XBLAD3.5 guide catheter was inserted over the wire 9:27:40 CHOICE PT Extra Support 182cm wire ([id number]) opened to sterile field. 9:28:13 xblad SH removed 9:28:39 GUIDE 6FR XBLAD 4.0 catheter ([id number]) opened to sterile field. 9:29:01 6 Fr XBLAD 4 guide catheter was inserted over the wire 9:29:23 choice pt ex wire advanced. 9:29:26 Wire advanced across lesion. 9:31:04 Inflate balloon Inflation number: 1 A EUPHORA 2.5 x 20 Balloon ([id number]) was prepped and advanced across the Mid LAD 95, then inflated to 17 MATEUS for 0:07 (min:sec) . 9:31:33 Inflation number: 2 The EUPHORA 2.5 x 20 Balloon ([id number]) was reinflated across the Mid LAD , to 17 MATEUS for 0:08 (min:sec) . 9:31:54 Balloon removed over the wire. 9:33:15 Place stent Inflation Number: 3 A JEFFREY RX 2.5 x 34 stent ([id number]) was prepped and advanced across the Mid LAD 95. The stent was deployed at 17 MATEUS for 0:09 (min:sec) 0. 9:33:24 Plavix 75 mg P.O. was administered by Shraddha Key RN; for antiplatelet therapy; Verbal order read back and verified. 9:34:22 Wire removed. 9:34:23 Guide catheter removed. 9:34:37 EXOSEAL 6Fr (EX600) opened to sterile field. 9:34:56 Sheath removed intact; hemostasis achieved with Exoseal to the Right Femoral artery. 9:35:02 Procedure ended.(Physican Out) 9:35:11 Fluoroscopy time 04.80 minutes. 9:35:16 Fluoroscopy dose: 1041 mGy 9:35:16 Flurop Dose total: 1041 9:35:25 Dose Area Product 92330 mGy/cm. 9:35:29 Contrast amount:Isovue 300 110ml. 9:35:31 Maximum allowable dose exceeded? No. 9:35:33 Sharps counted by scrub and verified by R.N. 9:35:39 Post-op/insertion site Right Femoral artery dressed using a 4 x 4 and Tegaderm. 9:36:07 Post Procedure Pulses reassessed and unchanged 9:36:12 Post-procedure physical assessment completed. ASA score P 3 - A patient with severe systemic disease as per Js Diaz MD. 9:36:17 Post procedure rhythm: unchanged. 9:36:20 Estimated blood loss: 10 ml 9:36:23 Post procedure instruction explained to patient.Patient verbalizes understanding. 9:36:45 Procedure type changed to Cath procedure, Diagnostic procedure, LHC, [facility] w/Coronaries, PCI procedure, Coronary Stent, Coronary Stent Initial 9:36:47 Procedure and supply charges have been captured, reviewed, submitted and are correct. 9:37:16 Procedure Complication : No complications 9:37:21 Vital chart was stopped 9:37:32 [facility] Findings: MVD- PCI performed (see procedure note) 9:37:37 Operative report dictated upon procedure completion. 9:37:38 See physician's report for complete and final results. 9:37:40 Report given to Pre/Post Procedure Room. 9:37:51 Patient transfered to [facility] with Bed. 9:37:53 Full Disclosure recording stopped 9:37:53 Procedure ended. 9:38:00 End room use (Document Last) 9:39:03 ACT drawn and resulted at 327 seconds. (normal therapeutic range 180-240 seconds). 9:49:25 Stress Test: no; N/A ? 9:49:29 Risk of Mortality: .1 9:49:32 Risk of blood transfusion: .1 9:49:35 Risk of ROYAL: .6 9:49:45 FEMSTOP Gold (L71651) opened to sterile field. 9:49:56 Femstop placed over the right femoral artery at 180 mmHg. Hemostasis achieved. 9:56:14 Phenergan 25 mg I.M. was administered by Shraddha Key RN; for nausea; Verbal order read back and verified. Intervention Summary Intervention Notes Time ActionType Lesion and Equipment Used Action# Pressure Duration Attributes 9:31:04 Inflate Mid LAD EUPHORA 2.5 x 1 17 00:07 balloon 20 Balloon ([id number]) 9:31:33 Reinflate Mid LAD EUPHORA 2.5 x 2 17 00:08 balloon 20 Balloon ([id number]) 9:33:15 Place stent Mid LAD JEFFREY RX 2.5 x 3 17 00:09 34 stent ([id number]) Device Usage Item Name Manufacture Quantity Catalog Number Hospital Part Current Minimal Lot# / Charge Number Stock Stock Serial# Code ACIST Syringe Acist 1 93677 466015 160576 109773 20 (32412) Medical Systems Inc Bag Decanter Microtek 1 2001S 376312 14840 299841 5 (2001S) Medical Inc. Medline Cath Medline 1 [id number] 156411 64163 561530 5 Pack ([id number]) ACIST Hand Acist 1 94993 729217 703172 292681 5 Control Medical (13142) Systems Inc ACIST Manifold Acist 1 47670 422526 406850 853965 5 (85244) Medical Systems Inc DIAGNOSTIC Cardinal 1 QQ5960 163116 42387 211658 30 Multipack 5Fr Health catheter set (YG4480) EMERALD Guide Cardinal 1 502-455 793533 148068 397510 5 Wire (502-455) Health SHEATH 6FR Terumo 1 UUU520 396421 294927 860432 40 [place] (WTX213) Tegaderm 4 x 4 3M 1 1626W 872579 249928 150020 5 (1626W) MULTIPACK Cardinal 1 227541 5 Pigtail 5 Fr Health catheter MULTIPACK JL Cardinal 1 994789 5 4.0 5Fr Health catheter MULTIPACK 3DRC Cardinal 1 689460 5 5Fr catheter Health INFLATOR Merit Merit 1 JJ2601 795224 362377 207626 15 [facility] (FX1012) [place] 1 03749I 378807 207150269 264500 5 Verrata Plus pressure wire (70573R) GUIDE 6FR 3DRC Medtronic 1 PD74HSE 643032 946780 733553 1 catheter ([id number]) GUIDE 6FR Cardinal 1 38398925 813472 190532 025952 3 XBLAD 3.5 SH Health catheter (94390577) CHOICE PT [place] 1 [id number] 471292 925014 820881 5 Extra Support Scientific 182cm wire ([id number]) GUIDE 6FR Cardinal 1 36493173 571197 681617 088227 3 XBLAD 4.0 Health catheter (61781223) EUPHORA 2.5 x Medtronic 1 [id number] 139093 145386 712663 5 [id number] 20 Balloon ([id number]) JEFFREY RX 2.5 x Medtronic 1 [id number] 105159 7607228 007416 5 [id number] 34 stent ([id number]) EXOSEAL 6Fr Cardinal 1 EX600 911897 073661 563327 10 (EX600) Health FEMSTOP Gold St [place] 1 X52681 161838 203258 700270 5 ([id number]) Signature Audit [place] Stage Time Signature Unsigned Intra-Procedure 04/27/2019 Maureen Lopez 9:38:56 AM RT(R) Intra-Procedure 04/27/2019 Shraddha Key 9:39:33 AM RN Intra-Procedure 04/27/2019 Js Diaz MD 9:40:41 AM 04/27/2019 9:49:12 AM Intra-Procedure 04/27/2019 Js Key RN 9:50:54 AM 04/27/2019 9:55:56 AM Intra-Procedure 04/27/2019 Shraddha Key 9:56:29 AM RN Intra-Procedure 04/27/2019 sJ Diaz 9:56:53 AM MD Signatures Performing Physician : Signature : Js Diaz MD Date : Time : Monitor : Maureen Yousifur Signature : RT Date : Time : Nurse : Shraddha Key RN Signature : Date : Time : [address] [address] [place] [address]
[2019-04-27] MEDS ORDERED: PLAVIX75 MG PO (07:35)
[2019-04-27] MEDS ORDERED: CYANOCOBAL1000 MCG/4 SC (07:36)
[2019-04-27] MEDS ORDERED: ZOLOFT100 MG PO (07:36)
[2019-04-27 07:51] VITALS: BP 122/55; BMI 33.7
[2019-04-27 08:31] LABS: ANION GAP 16.4 mmol/L (8-16); CARBON DIOXIDE 25.1 mmol/L (21.0-32.0); CHOL - HDL RATIO 5.5 ratio (2.3-4.1); POTASSIUM - SERUM 4.5 mmol/L (3.5-5.1)
[2019-04-27 09:35] LABS: BASOPHILS 0.6 % (0-2); EOSINOPHILS 3.7 % (0-7); HEMATOCRIT 45.9 % (36.0-48.0); HEMOGLOBIN 14.8 g/dL (12-16); IMMATURE GRANULOCYTES 0.9 % (0-5); LYMPHOCYTES 20.1 % (15-50); MCH 30.8 pg (26.0-34.0); MCHC 32.2 g/dL (31.0-37.0); MCV 95.4 fL (80.0-100.0); MEAN PLATELET VOLUME 9.8 fL (7.4-10.4); MONOCYTES 9.1 % (2-11); NEUTROPHILS 65.6 % (40-80); PLATELET COUNT 264 10x3/uL (130-400); RBC 4.81 10x6/uL (4.00-5.40); RDW 13.2 % (11.5-14.5); WBC 5.4 10x3/uL (4.8-10.8)
[2019-04-27 10:22] VITALS: BP 80/52; Ht 154.9 cm; Wt 80.9 kg
--- NOTE | 2019-04-27 10:30 | NUR ---
TRANSFER FROM CATH LAV. RIGHT GROIN STABLE WITH FEMSTOP INTACT. CALL LIGHT IN REACH. WILL CONT. PLAN OF CARE.
--- NOTE | 2019-04-27 12:40 | NUR ---
PT RESTING COMFORTABLY IN BED, STATES PAIN HAS GOTTEN A LITTLE BETTER. BP NOW IN THE 70S. CALL LIGHT IN REACH, FAMILY AT BEDSIDE, NAD NOTED, WILL CONITNUE TO MONITOR.
[2019-04-27 12:47] VITALS: BP 94/59
[2019-04-27 15:09] LABS: HEMATOCRIT 37.7 % (36.0-48.0)
--- NOTE | 2019-04-27 15:09 | NUR ---
NO CHANGES FROM PREVIOUS ASSESSMENT TO RT GROIN. LT FA IV INFILTRATED, D/C IV WITH CATHETER TIP INTACT. TRIED TO START NEW IV, STUCK PT ONCE UNSUCCESSFUL. ASKED FINAL FINISHER FORGING DIES TO START NEW IV.
[2019-04-27 15:24] LABS: HEMOGLOBIN 11.8 g/dL (12-16)
[2019-04-27 16:40] VITALS: BP 96/53
[2019-04-27 20:00] VITALS: BP 105/49
--- NOTE | 2019-04-27 20:29 | NUR ---
PT INCONTINENT OF URINE, BATH AND LINEN CHANGE COMPLETE.
[2019-04-28] VITALS: BP 123/46
--- NOTE | 2019-04-28 01:12 | NUR ---
I have reviewed this patient and I concur with the Shift Assessment completed by the Licensed Practical Nurse today this shift.
--- NOTE | 2019-04-28 02:13 | NUR ---
RESTING WITH EYES CLOSED, RESPERATIONS EVEN, NO S/S DISTRESS NOTED.
[2019-04-28 04:00] VITALS: BP 122/56
--- NOTE | 2019-04-28 06:00 | NUR ---
CONSENTS SIGNED FOR MILL HELPER AND PLACED IN CHART.
--- NOTE | 2019-04-28 07:30 | NUR ---
RECIEVED REPORT. ALERT AND ORIENTED X4. SITTING UP IN BED. PREOP COMPLETE FOR STILL OPERATOR BRANDY. FSBS CHECKED PER PATIENT REQUEST. FS-156. DENIES SOB OR PAIN. CONTINUE PLAN OF CARE AND SAFETY PRECAUTIONS.
[2019-04-28 08:41] VITALS: BP 127/35
--- NOTE | 2019-04-28 10:18 | OP ---
PATIENT NAME: JENNIFER LEUNG MEDICAL RECORD: [id number] :41 LOCATION:D.M2 D.2126 ADMISSION DATE: SURGEON: BRIA SPARROW MD DATE OF OPERATION: 04/27/2019 PROCEDURES: 1. Left heart catheterization. 2. Selective coronary angiography. 3. Left ventriculogram. 4. PTCA stent, LAD. INDICATION: Angina and coronary artery disease. PROCEDURE IN DETAIL: After informed consent was obtained and after a detailed description of risks, benefits as well as alternative therapies, the patient elected to proceed with angiogram and angioplasty. The right femoral area was prepped and draped in normal sterile fashion. Right femoral artery was cannulated via modified Seldinger technique with placement of 6-Polish sheath. All catheters exchanged through this sheath. FINDINGS: Left ventriculogram was performed in standard 30-degree MARTIN view, reveals good cardiac wall motion throughout all segments. Overall ejection fraction estimated at 65%. SELECTIVE CORONARY ANGIOGRAPHY: 1. Left main is with no significant angiographic disease. 2. Left anterior descending is 95% percent stenosis in the mid vessel. 3. Left circumflex has greater than 80% stenosis of the first obtuse marginal. 4. The right coronary artery has multiple areas of hazy stenosis, most likely 70% to 80% stenosed. PTCA STENT OF THE LAD: The stent used was a 2.5 x 34 mm Nhan. Result was 0% residual stenosis. OVERALL IMPRESSION: Successful percutaneous transluminal coronary angioplasty stent of the left anterior descending going from 95% initial stenosis to 0% residual. TRANSINT:[id number] Voice Confirmation ID: [id number] DOCUMENT ID: [id number] BRIA SPARROW MD at 1018 CC: [id number] DICTATION DATE: 04/27/19 0938 DRIER AND EVAPORATOR OPERATOR: 04/27/19 [id number] [place] [address]
--- NOTE | 2019-04-28 10:35 | NUR ---
PATIENT ARRIVED TO ROOM 6. PLACED ON CM. VSS. LEFT GROIN DRESSING IS CDI,NO S/S OF BLEEDING OR HEMATOMA. WILL CONTINUE TO MONITOR.
--- NOTE | 2019-04-28 10:50 | NUR ---
PATIENT RESTING, VSS ON 1L NC. LEFT GROIN DRESSING IS CDI, NO S/S OF BLEEDING OR HEMATOMA. NO C/O PAIN, NUMBNESS, OR TINGLING. NO N/V. FAMILY PREVIOUSLY UPDATED BY PHYSICIAN.
[2019-04-28] MEDS ORDERED: PRAVACHOL40 MG PO (10:54)
--- NOTE | 2019-04-28 11:20 | NUR ---
PATIENT RESTING, VSS ON 1L NC. LEFT GROIN DRESSING IS CDI, NO S/S OF BLEEDING OR HEMATOMA. NO C/O PAIN, NUMBNESS, OR TINGLING. NO N/V.
--- NOTE | 2019-04-28 11:49 | NUR ---
PATIENT RESTING, FAMILY PRESENT AT BEDSIDE. VSS ON 1L NC. LEFT GROIN DRESSING IS CDI, NO S/S OF BLEEDING OR HEMATOMA. NO C/O PAIN, NUMBNESS, OR TINGLING. NO N/V.
--- NOTE | 2019-04-28 12:20 | NUR ---
PATIENT RESTING, FAMILY PRESENT AT BEDSIDE. VSS ON 1L NC. LEFT GROIN DRESSING IS CDI, NO S/S OF BLEEDING OR HEMATOMA. NO C/O PAIN, NUMBNESS, OR TINGLING.
--- NOTE | 2019-04-28 12:50 | NUR ---
PATIENT WAKES TO VERBAL STIMULI, VSS ON ROOM AIR. LEFT GROIN DRESSING IS CDI, NO S/S OF BLEEDING OR HEMATOMA. NO C/O PAIN, NUMBNESS, OR TINGLING.
--- NOTE | 2019-04-28 13:20 | NUR ---
HEAD OF BED ELEVATED TO 30 DEGREES. LEFT GROIN DRESSING IS CDI, NO S/S OF BLEEDING OR HEMATOMA. NO C/O PAIN, NUMBNESS, OR TINGLING. TOLERATING PO FLUIDS AND FOOD, NO N/V. VSS ON ROOM AIR.
--- NOTE | 2019-04-28 13:50 | NUR ---
PATIENT VOIDED WITHOUT DIFFICULTY. IV REMOVED. WRITTEN AND VERBAL DISCHARGE INSTRUCTIONS AND MEDICATION COMPLIANCE REVIEWED WITH PATIENT AND FAMILY, BOTH VOICE UNDERSTANDING. VSS ON ROOM AIR. LEFT GROIN DRESSING IS CDI, NO S/S OF BLEEDING OR HEMATOMA.
--- NOTE | 2019-04-28 14:15 | NUR ---
PATIENT TRANSPORTED VIA WHEELCHAIR TO CAR WITH FAMILY DRIVING, ALL BELONGINGS WITH PATIENT.
--- NOTE | 2019-04-29 14:08 | DS ---
PATIENT:JENNIFER LEUNG :41 MEDICAL RECORD: [id number] DISCHARGE SUMMARY ADMISSION DATE: 04/27/19 DISCHARGE DATE: 04/28/19 DATE OF DISCHARGE: 04/28/2019. DIAGNOSES: 1. Angina. 2. Coronary artery disease. 3. Percutaneous transluminal coronary angioplasty stent right coronary artery and left anterior descending this admission. HOSPITAL COURSE: Mrs. Leung presented to the [facility] with anginal symptomatology, found to have 3-vessel coronary artery disease. It was suggested, she had bypass surgery. She did not want bypass surgery. She had a 95% stenosis of the LAD, which we did successful PTCA stent on; 80% stenosis of the RCA, which IFR was abnormal, did successful PTCA stent on. She did have a 70% stenosis of the circumflex; however, IFR was normal in the obtuse marginal and the circumflex itself. Hence, no intervention was undertaken of the circumflex. She had no further anginal symptomatology. She was discharged home with the addition of Plavix and Pravachol to her medical regimen. Follow up with [facility] in 1 month. TRANSINT:[id number] Voice Confirmation ID: [id number] DOCUMENT ID: [id number] BRIA SPARROW MD at 1408 CC: [id number] DICTATION DATE: 04/28/19 1020 SHEEP OR CALF GRADER: 04/29/19 0645 DEP CLI 04/28/19 [id number] [place], [place] [address]
--- NOTE | 2019-04-29 14:08 | OP ---
PATIENT NAME: JENNIFER LEUNG MEDICAL RECORD: [id number] :41 LOCATION:D.CAT ADMISSION DATE: SURGEON: BRIA SPARROW MD DATE OF OPERATION: 04/28/2019 PROCEDURES: 1. PTCA stent RCA. 2. IFR RCA. 3. IFR left circumflex and first obtuse marginal. 4. Selective coronary angiography. INDICATION: Angina and coronary artery disease. PROCEDURE IN DETAIL: After informed consent was obtained and after a detailed description of risks, benefits as well as alternative therapies, the patient elected to proceed with angiogram and angioplasty. The left femoral area was prepped and draped in normal sterile fashion. Left femoral artery was cannulated via modified Seldinger technique with placement of 6-Palauan sheath. All catheters exchanged through this sheath. FINDINGS: The right coronary has 80% stenosis in the mid vessel. IFR was abnormal at 0.88. Stenting was undertaken with a 3.5 x 22 mm Nhan. Result was 0% residual stenosis. The left circumflex appears to have 70% stenosis in the mid vessel; however, IFR was normal at the obtuse marginal and the circumflex itself. OVERALL IMPRESSION: Successful percutaneous transluminal coronary angioplasty stent of the right coronary artery going from 80% initial stenosis to 0% residual. TRANSINT:[id number] Voice Confirmation ID: [id number] DOCUMENT ID: [id number] BRIA SPARROW MD at 1408 CC: [id number] DICTATION DATE: 04/28/19 1022 BUSINESS INSURANCE AGENT: 04/28/19 1150 DEP CLI 04/28/[address] [address]
== END 2019-04-28 14:16 ==
LOC: D.CATH 07:12 → D.M2 07:12 → D.CATH 09:00 → D.M2 10:08 → D.CLR 04-28 10:44 → D.CATH 04-28 14:16
PROVIDERS: ATTEND Internal Medicine Interventional Cardiology
DX: I25.110 Atherosclerotic heart disease of native coronary artery with unstable angina pectoris (principal)
CPT/HCPCS: C9600 ×2; 93458; 93571; 93572

== ENCOUNTER → 2019-05-11 14:31 | Outpatient (CLI) | payer MEDICARE ==
[2019-04-27 10:22] VITALS: BMI 33.7
[~2019-05-11 14:31] MED LIST changes: +CYANOCOBAL1000 MCG/4 SC; +PLAVIX75 MG PO; +PRAVACHOL40 MG PO; +ZOLOFT100 MG PO
== END | disposition home or self-care (01) ==
LOC: D.US 14:31
PROVIDERS: ATTEND Nurse Practitioner Adult Health
DX: S70.11XA Contusion of right thigh, initial encounter (principal)

== ENCOUNTER 2019-09-01 03:08 | Inpatient (IN) | payer MEDICARE ==
[~2019-09-01] VITALS: Ht 154.9 cm; Wt 76.7 kg
[2019-09-01] MEDS ORDERED: PLAVIX75 MG PO (03:16)
[2019-09-01] MEDS ORDERED: ZETIA10 MG PO (03:16)
[2019-09-01] MEDS ORDERED: JANUMET XR 50-1 EAC1 PO (03:17)
[2019-09-01 04:10] LABS: BASOPHILS 0.2 % (0-2); CALC OSMOLALITY 285 mosm/kg (275-300); CALCIUM 8.8 mg/dL (8.5-10.1); CARBON DIOXIDE 23.8 mmol/L (21.0-32.0); CHLORIDE - SERUM 102 mmol/L (98-107); CREATININE - SERUM 1.1 mg/dL (0.6-1.3); EOSINOPHILS 1.6 % (0-7); HEMATOCRIT 42.2 % (36.0-48.0); HEMOGLOBIN 13.9 g/dL (12-16); IMMATURE GRANULOCYTES 0.7 % (0-5); LYMPHOCYTES 11.9 % (15-50); MCH 29.9 pg (26.0-34.0); MCHC 32.9 g/dL (31.0-37.0); MCV 90.8 fL (80.0-100.0); MEAN PLATELET VOLUME 9.3 fL (7.4-10.4); MONOCYTES 6.2 % (2-11); NEUTROPHILS 79.4 % (40-80); PLATELET COUNT 307 10x3/uL (130-400); POTASSIUM - SERUM 4.3 mmol/L (3.5-5.1); RBC 4.65 10x6/uL (4.00-5.40); RDW 14.5 % (11.5-14.5); SODIUM 138 mmol/L (136-145); UREA NITROGEN 25 mg/dL (7-18); WBC 9.6 10x3/uL (4.8-10.8); eGFR NON AFRICAN AMERICAN 51 mL/min (90-120)
[2019-09-01 04:12] LABS: GLUCOSE 210 mg/dL (74-106)
[2019-09-01 04:19] LABS: ALBUMIN 3.8 g/dL (3.4-5.0); ALKALINE PHOSPHATASE 127 U/L (30-120); ALT (SGPT) 19 U/L (10-68); BILIRUBIN - TOTAL 0.33 mg/dL (0.2-1.3); LIPASE 118 U/L (73-393)
[2019-09-01 04:21] LABS: TROPONIN-I < 0.017 ng/mL (0.000-0.060)
[2019-09-01 04:24] LABS: APTT 27.2 SECONDS (22.8-39.4); INR 0.96 (0.85-1.17); PROTIME 12.7 SECONDS (11.6-15.0)
--- NOTE | 2019-09-01 04:30 | NUR ---
PT TO CT AT THIS TIME
--- NOTE | 2019-09-01 04:55 | NUR ---
PT BACK FROM CT.
[2019-09-01 05:40] VITALS: BP 127/57
--- NOTE | 2019-09-01 07:32 | NUR ---
RECEIVED PT FROM ER. PT IS AAO AND UP AD FELICITA. RR EVEN AND UNLABORED ON RA. PIV SALINE LOCKED. NO S/S OF DISTRESS NOTED. PT SITTING ON EDGE OF BED. CALL LIGHT W/I REACH. PT ORIENTED TO ROOM. WILL CTM.
[2019-09-01 09:31] VITALS: BP 124/52
[2019-09-01 10:11] LABS: HEMATOCRIT 35.4 % (36.0-48.0); HEMOGLOBIN 11.5 g/dL (12-16)
[2019-09-01 10:48] VITALS: BP 124/52; BMI 34.0
[2019-09-01 13:43] VITALS: BP 137/60
[2019-09-01 15:49] LABS: BILIRUBIN NEGATIVE (NEGATIVE); GLUCOSE NEGATIVE (NEGATIVE); KETONE NEGATIVE (NEGATIVE); NITRITE NEGATIVE (NEGATIVE); SPECIFIC GRAVITY 1.015 (1.005-1.020); UROBILINOGEN NORMAL (NORMAL)
[2019-09-01 15:50] LABS: RED CELLS - URINE OCC /hpf (0-5); WHITE CELLS - URINE 0-5 /hpf (NEGATIVE)
[2019-09-01 15:51] LABS: BACTERIA FEW /hpf (NEGATIVE); EPITHELIAL CELLS OCC /hpf (0-5)
[2019-09-01 16:56] LABS: HEMATOCRIT 34.7 % (36.0-48.0); HEMOGLOBIN 11.2 g/dL (12-16)
[2019-09-01 17:04] VITALS: BP 135/56
--- NOTE | 2019-09-01 19:43 | NUR ---
PT LYING IN BED AWAKE ALERT AND ORIENTED x4. NO SIGNS OR SYMPTOMS OF DISTRESS NOTED. RESPIRATIONS EVEN AND UNLABORED. CALL LIGHT WITHIN RE4ACH AND BED IS INLOWEST POSITION. PT ENCOURAGED TO CALL FOR HELP WHEN GETTING IN AND OUT OF BED. WILL CONTINUE TO MONITOR.
[2019-09-01 20:39] VITALS: BP 121/51
--- NOTE | 2019-09-01 21:49 | NUR ---
ASSIST PT TP RESTROOM GAIT IS EVEN AND STEADY FALL SOCKS ARE ON. NO SIGNS OF DISTRESS. CALL LIGHT WITH IN REACH BED IS IN LOWEST POSITION. PT ENCOURAGED TO CALL FOR HELP WHEN NEEDED. WILL CONTINUE TO MONITOR.
[2019-09-02] VITALS: BP 118/54
[2019-09-02 00:32] LABS: HEMATOCRIT 35.2 % (36.0-48.0); HEMOGLOBIN 11.3 g/dL (12-16)
--- NOTE | 2019-09-02 01:43 | NUR ---
I have reviewed this patient and I concur with the Shift Assessment completed by the Licensed Practical Nurse today this shift.
--- NOTE | 2019-09-02 02:45 | NUR ---
PT LYING IN BED RESTING WITH EYES CLOSED. EASILY AWAKEN WITH VOICE STIMULATION. NO SIGNS OR SYMPTOMS OF DISTRESS NOTED. RESPIRATIONS EVEN AND UNLABORED. NO COMPLAINTS AT THIS TIME. PT ENCOURAGED TO CALL FOR HELP WHEN GETTING IN AND OUT OF BED. CALL LIGHT WITH IN REACH AND BED IS INLOWEST POSITION. WILL CONTINUE TO MONITOR
[2019-09-02 05:13] VITALS: BP 141/56
[2019-09-02 06:05] LABS: BASOPHILS 0.4 % (0-2); EOSINOPHILS 3.5 % (0-7); HEMATOCRIT 34.5 % (36.0-48.0); IMMATURE GRANULOCYTES 1.1 % (0-5); LYMPHOCYTES 26.8 % (15-50); MCH 28.9 pg (26.0-34.0); MCHC 31.9 g/dL (31.0-37.0); MCV 90.6 fL (80.0-100.0); MEAN PLATELET VOLUME 9.2 fL (7.4-10.4); MONOCYTES 9.9 % (2-11); NEUTROPHILS 58.3 % (40-80); PLATELET COUNT 257 10x3/uL (130-400); RBC 3.81 10x6/uL (4.00-5.40); RDW 14.6 % (11.5-14.5)
[2019-09-02 06:06] LABS: WBC 4.6 10x3/uL (4.8-10.8)
[2019-09-02 06:41] LABS: ANION GAP 12.8 mmol/L (8-16); BILIRUBIN - TOTAL 0.33 mg/dL (0.2-1.3); CALCIUM 8.3 mg/dL (8.5-10.1); CARBON DIOXIDE 23.6 mmol/L (21.0-32.0); POTASSIUM - SERUM 4.4 mmol/L (3.5-5.1)
[2019-09-02 06:54] LABS: CREATININE - SERUM 0.8 mg/dL (0.6-1.3)
[2019-09-02 09:00] VITALS: BP 162/84
[2019-09-02] MEDS ORDERED: PROTONIX40 MG PO (11:31)
[2019-09-02 13:46] VITALS: Ht 154.9 cm; Wt 76.7 kg
[2019-09-02 13:52] VITALS: BP 123/99
--- NOTE | 2019-09-02 14:47 | NUR ---
PT'S DISCHARGE INSTRUCTIONS REVIEWED, IV REMOVED. WHEELED OUT TO FRONT VIA WHEELCHAIR.
--- NOTE | 2019-09-03 07:32 | MORECARE ---
CASE MANAGEMENT DISCHARGE SUMMARY PATIENT: JENNIFER LEUNG UNIT: [id number] ADM DATE: 09/01/19 AGE: 74 : 41 SEX: F ROOM/BED: D.2101 AUTHOR: ALAN JEFF PHYSICIAN: REFERRING PHYSICIAN: LEONARDO ANGEL MD DATE OF SERVICE: 09/03/19 Discharge Plan Patient Name: JENNIFER LEUNG Facility: [facility]:[place] : 1945 Planned Disposition: Home Anticipated Discharge Date: 09/02/19 Discharge Date: 09/02/2019 Expected LOS: 1 Initial Reviewer: [email or web address] Initial Review Date: 09/03/2019 Generated: 09/03/19 8:32 am Patient Name: JENNIFER LEUNG Page [id number] at 0732 All edits/amendments must be made on the electronic document DICTATION DATE: 09/03/19731 GROUP FITNESS ASSISTANT DEPARTMENT HEAD: MICA 09/03/19 0732 RPT#: [id number] DC DATE:09/02/19 STATUS: DIS IN [facility] [address] [place] [address] END OF REPORT
== END 2019-09-02 14:48 | disposition home or self-care (01) | DRG 393 ==
LOC: D.ER 03:08 → D.M2 06:27
PROVIDERS: Family Medicine; ADMIT Internal Medicine Nephrology; ATTEND Internal Medicine Nephrology
DX: K64.8 Other hemorrhoids (principal); K57.91 Diverticulosis of intestine, part unspecified, without perforation or abscess with bleeding; D62 Acute posthemorrhagic anemia; N17.9 Acute kidney failure, unspecified; I10 Essential (primary) hypertension; E78.5 Hyperlipidemia, unspecified; E11.9 Type 2 diabetes mellitus without complications; I25.10 Atherosclerotic heart disease of native coronary artery without angina pectoris; G89.29 Other chronic pain; M54.9 Dorsalgia, unspecified